=== PATIENT | female | born 1985 | race Caucasian/White ===

== ENCOUNTER 2016-08-09 17:30 | Observation (INO) | payer OTHER ==
[~2016-08-09] VITALS: Ht 157.5 cm; Wt 68.0 kg
[2016-08-09 18:42] VITALS: BP_SYST 110
[2016-08-09] MEDS: TERBUTALINE SULFATE 1 MG/ML VIAL SUBCUT PRN ×2 (20:57→21:28)
== END 2016-08-09 21:40 | disposition home or self-care (01) ==
LOC: SPU 17:30
PROVIDERS: ADMIT Specialist; ATTEND Specialist
DX: O62.9 Abnormality of forces of labor, unspecified (principal); Z3A.30 30 weeks gestation of pregnancy
CPT/HCPCS: 81002; 96372; G0378; 59899

== ENCOUNTER 2016-10-02 05:35 | Inpatient (IN) | payer OTHER ==
[~2016-10-02] VITALS: Ht 157.5 cm; Wt 73.5 kg
[2016-10-02] MEDS ORDERED: LR 1,000 ML IV ONE ×2 (05:43→08:21)
[2016-10-02] MEDS ORDERED: CEFAZOLIN 2 GM IVPB PREMIX 50 ML IV ONE ×2 (05:45→07:26)
[2016-10-02 06:55] LABS: BASOPHILS # (AUTO) 0.1 K/uL (0.0-0.2); BASOPHILS % (AUTO) 0.6 % (0.0-2.0); EOSINOPHILS # (AUTO) 0.1 K/uL (0.0-0.4); EOSINOPHILS % (AUTO) 1.4 % (0.0-4.0); HEMATOCRIT 35.2 % (36-48); HEMOGLOBIN 11.9 g/dL (12.0-16.0); LYMPHOCYTES # (AUTO) 2.6 K/uL (1.0-5.5); LYMPHOCYTES % (AUTO) 27.6 % (20.5-51.5); MEAN CORPUSCULAR HEMOGLOBIN 31 pg (27-31); MEAN CORPUSCULAR HGB CONC 34 % (32-36); MEAN CORPUSCULAR VOLUME 92 fL (79.0-98.0); MONOCYTES # (AUTO) 0.6 K/uL (0.0-1.0); MONOCYTES % (AUTO) 6.1 % (1.7-9.3); NEUTROPHILS # (AUTO) 5.9 K/uL (1.8-7.7); NEUTROPHILS % (AUTO) 64.3 % (40.0-70.0); PLATELET COUNT (AUTO) 138 K/uL (130-430); RED BLOOD CELL COUNT(AUTO) 3.81 MIL/uL (4.2-6.2); WHITE BLOOD COUNT (AUTO) 9.3 K/uL (4.8-10.8)
[2016-10-02 07:23] LABS: BILIRUBIN,URINE NEGATIVE (NEGATIVE); BLOOD, URINE NEGATIVE (NEGATIVE); CLARITY/URINE CLEAR (CLEAR); COLOR,URINE YELLOW (YELLOW); GLUCOSE,URINE NEGATIVE (NEGATIVE); KETONES,URINE NEGATIVE (NEGATIVE); LEUKOCYTE ESTERASE ,URINE 1+ (NEGATIVE); NITRITE, URINE NEGATIVE (NEGATIVE); PH,URINE 6.5 (5.0-8.0); PROTEIN URINE NEGATIVE (NEGATIVE); UROBILINOGEN,URINE 0.2 (0.2-1.0)
[2016-10-02] MEDS ORDERED: NS IRRIG SOLN 1000 ML IR ONE (07:26)
[2016-10-02] MEDS ORDERED: LR 1,000 ML IV.SOLN IV ONE (07:26)
[2016-10-02] MEDS ORDERED: OXYTOCIN 10 UNIT/ML VIAL IV ONE (07:26)
[2016-10-02] MEDS ORDERED: DEXAMETHASONE SOD PHOSPHATE 4 MG/ML VIAL IVP ONE (07:26)
[2016-10-02 07:27] VITALS: BP_SYST 105
[2016-10-02 08:03] LABS: BACTERIA,URINE MODERATE /HPF (None Seen); RBC,URINE 0-3 /HPF (0-3)
[2016-10-02 08:04] LABS: MUCUS,URINE 1+ /LPF (None Seen); URINE AMORPHOUS URATE 1+ /HPF (None Seen)
[2016-10-02] MEDS ORDERED: fentaNYL CITRATE/PF 100 MCG/2 ML AMP IVP PRN (08:30)
[2016-10-02] MEDS ORDERED: ePHEDrine sulfate 50 MG/ML VIAL IVP PRN (08:30)
[2016-10-02] MEDS ORDERED: KETOROLAC TROMETHAMINE 30 MG VIAL IM PRN (08:30)
[2016-10-02] MEDS ORDERED: NALOXONE HCL 0.4 MG/ML AMP (NARCAN) IVP PRN (08:30)
[2016-10-02] MEDS ORDERED: NALBUPHINE HCL 10 MG/ML AMP IVP PRN (08:30)
[2016-10-02] MEDS ORDERED: DIPHENHYDRAMINE INJ 50 MG/ML VIAL IVP PRN (08:30)
[2016-10-02] MEDS ORDERED: ONDANSETRON HCL 4 MG/2 ML VIAL IVP PRN ×2 (08:30)
[2016-10-02] MEDS ORDERED: OXYTOCIN/NORMAL SALINE 1,000 ML IV ONE ×2 (09:05→14:01)
[2016-10-02 09:19] VITALS: BP_SYST 135
[2016-10-02] MEDS ORDERED: MORPHINE SULFATE 10MG/10ML PF AMP ONE (14:00)
[2016-10-02] MEDS ORDERED: fentaNYL CITRATE/PF 100 MCG/2 ML AMP ONE (14:00)
[2016-10-02] MEDS ORDERED: DIPH-TET-PERTUS Vaccine 0.5 ML VIAL/Tdap (ADACEL) I.M. PRN (14:00)
[2016-10-02] MEDS ORDERED: OXYTOCIN/NORMAL SALINE 1,000 ML IV SCH (14:01)
[2016-10-02] MEDS ORDERED: LANOLIN 7 GM OINT. TP PRN (14:15)
[2016-10-02] MEDS ORDERED: ANUSOL 1 EA SUPP.RECT (PREPARATION H) RC PRN (14:15)
[2016-10-02] MEDS ORDERED: DERMOPLAST SPRAY TP PRN (14:15)
[2016-10-02] MEDS ORDERED: HYDROCORTISONE 0.5%, 28.35 GM TOPICAL CREAM TP PRN (14:15)
[2016-10-02] MEDS ORDERED: GLYCERIN/WITCH HAZEL (TUCKS PADS) TP PRN (14:15)
[2016-10-02] MEDS ORDERED: OXYCODONE/ACETAMINOPHEN 5-325 TABLET PO PRN (14:15)
[2016-10-02] MEDS ORDERED: HYDROcodone/ACETAMIN 5-325 MG TAB (NORCO/ VICODIN) PO PRN (14:15)
[2016-10-02] MEDS ORDERED: RHO(D) IMMUNE GLOBULIN/MALTOSE 1500 UNITS/1.3 ML (WINHRO) IM PRN (14:15)
[2016-10-02] MEDS ORDERED: MEASLES,MUMPS&RUBELLA VACC/PF 12500 UNIT/0.5 ML VIAL SUBQ PRN (14:15)
[2016-10-02] MEDS ORDERED: CEFAZOLIN 1 GM IVPB PREMIX 50 ML IV ONE (17:57)
[2016-10-02] MEDS: KETOROLAC TROMETHAMINE 30 MG VIAL IVP SCH (17:58)
[2016-10-02] MEDS ORDERED: TEMAZEPAM 15 MG CAPSULE PO PRN (21:00)
[2016-10-02] MEDS: CEFAZOLIN 1 GM IVPB PREMIX 50 ML IV SCH (23:44)
[2016-10-03] MEDS: KETOROLAC TROMETHAMINE 30 MG VIAL IVP SCH (06:19)
[2016-10-03] MEDS: CEFAZOLIN 1 GM IVPB PREMIX 50 ML IV SCH ×2 (06:24→12:05)
[2016-10-03 07:24] LABS: BASOPHILS % (AUTO) 0.2 % (0.0-2.0); EOSINOPHILS # (AUTO) 0.1 K/uL (0.0-0.4); EOSINOPHILS % (AUTO) 0.7 % (0.0-4.0); HEMATOCRIT 31.5 % (36-48); HEMOGLOBIN 10.7 g/dL (12.0-16.0); LYMPHOCYTES # (AUTO) 2.2 K/uL (1.0-5.5); LYMPHOCYTES % (AUTO) 19.2 % (20.5-51.5); MEAN CORPUSCULAR HEMOGLOBIN 32 pg (27-31); MEAN CORPUSCULAR HGB CONC 34 % (32-36); MEAN CORPUSCULAR VOLUME 93 fL (79.0-98.0); MONOCYTES # (AUTO) 0.5 K/uL (0.0-1.0); MONOCYTES % (AUTO) 4.4 % (1.7-9.3); NEUTROPHILS # (AUTO) 8.6 K/uL (1.8-7.7); NEUTROPHILS % (AUTO) 75.5 % (40.0-70.0); PLATELET COUNT (AUTO) 119 K/uL (130-430); RED CELL DISTRIBUTION WIDTH 13.5 % (9.0-15.0); WHITE BLOOD COUNT (AUTO) 11.4 K/uL (4.8-10.8)
[2016-10-03] MEDS: IBUPROFEN 600 MG TABLET PO SCH ×2 (12:10→17:54)
[2016-10-03] MEDS: SENNOSIDES/DOCUSATE SODIUM 1 TAB TABLET(SENOKOT-S) PO PRN (12:10)
[2016-10-03] MEDS: DOCUSATE SODIUM 100 MG CAPSULE PO PRN (12:11)
[2016-10-03] MEDS: OXYCODONE/ACETAMINOPHEN 5-325 TABLET PO PRN (16:28)
[2016-10-04] MEDS: DOCUSATE SODIUM 100 MG CAPSULE PO PRN ×2 (00:44→12:52)
[2016-10-04] MEDS: IBUPROFEN 600 MG TABLET PO SCH ×4 (00:44→17:57)
[2016-10-04] MEDS: SENNOSIDES/DOCUSATE SODIUM 1 TAB TABLET(SENOKOT-S) PO PRN (12:52)
[2016-10-04] MEDS: OXYCODONE/ACETAMINOPHEN 5-325 TABLET PO PRN (14:07)
[2016-10-04] MEDS ORDERED: DIPH-TET-PERTUS Vaccine 0.5 ML VIAL (ADACEL) I.M. ONE (18:00)
== END 2016-10-04 20:33 | disposition home or self-care (01) | DRG 766 ==
LOC: SPU 05:35
PROVIDERS: ADMIT Specialist; ATTEND Specialist
PROC: 3E0234Z Introduction of Serum, Toxoid and Vaccine into Muscle, Percutaneous Approach (ICD-10-PCS; 2016-10-02)
PROC: 10D00Z1 Extraction of Products of Conception, Low, Open Approach (ICD-10-PCS; principal; 2016-10-04)
DX: O34.211 Maternal care for low transverse scar from previous cesarean delivery (principal); O34.13 Maternal care for benign tumor of corpus uteri, third trimester; O32.1XX0 Maternal care for breech presentation, not applicable or unspecified; D25.1 Intramural leiomyoma of uterus; D25.2 Subserosal leiomyoma of uterus; Z3A.38 38 weeks gestation of pregnancy; Z37.0 Single live birth; Z23 Encounter for immunization
CPT/HCPCS: 36415; 81000-TC; 85025; 86592; 86886; 86900; 86901; 90715; 94760; J0690; J1100; J1885; J2274; J2590; J3010; J7120

== ENCOUNTER 2021-08-25 05:40 | Inpatient (IN) | payer OTHER ==
[2021-08-23 10:38] LABS: BASOPHILS % (AUTO) 0.5 % (0.0-2.0); EOSINOPHILS # (AUTO) 0.1 K/uL (0.0-0.4); EOSINOPHILS % (AUTO) 1.3 % (0.0-4.0); HEMOGLOBIN 12.9 g/dL (12.0-16.0); LYMPHOCYTES # (AUTO) 2.3 K/uL (1.0-5.5); LYMPHOCYTES % (AUTO) 27.1 % (20.5-51.5); MEAN CORPUSCULAR HEMOGLOBIN 31 pg (27-31); MEAN CORPUSCULAR HGB CONC 34 % (32-36); MEAN CORPUSCULAR VOLUME 90 fL (79.0-98.0); MONOCYTES # (AUTO) 0.6 K/uL (0.0-1.0); MONOCYTES % (AUTO) 6.8 % (1.7-9.3); NEUTROPHILS # (AUTO) 5.4 K/uL (1.8-7.7); NEUTROPHILS % (AUTO) 64.3 % (40.0-70.0); PLATELET COUNT (AUTO) 173 K/uL (130-430); RED CELL DISTRIBUTION WIDTH 14.9 % (9.0-15.0); WHITE BLOOD COUNT (AUTO) 8.5 K/uL (4.8-10.8)
[2021-08-23 11:37] LABS: BILIRUBIN,URINE NEGATIVE (NEGATIVE); BLOOD, URINE NEGATIVE (NEGATIVE); CLARITY/URINE SL CLOUDY (CLEAR); COLOR,URINE YELLOW (YELLOW); GLUCOSE,URINE NEGATIVE (NEGATIVE); KETONES,URINE NEGATIVE (NEGATIVE); LEUKOCYTE ESTERASE ,URINE TRACE (NEGATIVE); NITRITE, URINE NEGATIVE (NEGATIVE); PH,URINE 6.5 (5.0-8.0); PROTEIN URINE TRACE (NEGATIVE); UROBILINOGEN,URINE 0.2 (0.2-1.0)
[2021-08-23 13:59] LABS: BACTERIA,URINE MODERATE /HPF (None Seen); RBC,URINE 0-3 /HPF (0-3)
[~2021-08-25] VITALS: Ht 157.5 cm; Wt 81.2 kg
[2021-08-25 06:06] VITALS: BP_SYST 110
[2021-08-25] MEDS ORDERED: CEFAZOLIN 2 GM IVPB PREMIX 50 ML IV ONE ×2 (06:15→06:37)
[2021-08-25] MEDS ORDERED: FLU VACC QS2021-22(6MOS UP)/PF 0.5 ML/SYR SYRINGE I.M. PRN (06:30)
[2021-08-25] MEDS: LR 1,000 ML IV SCH ×4 (06:32→21:08)
[2021-08-25] MEDS ORDERED: ONDANSETRON HCL 4 MG/2 ML VIAL ONE (07:58)
[2021-08-25] MEDS ORDERED: DEXAMETHASONE SOD PHOSPHATE 4 MG/ML VIAL ONE (07:58)
[2021-08-25] MEDS ORDERED: BUPIVACAINE /DEX PF 0.75% SPINAL 2 ML AMP INJ ONE (07:58)
[2021-08-25] MEDS ORDERED: NS IRRIG SOLN 1000 ML IR ONE (07:58)
[2021-08-25] MEDS ORDERED: LR 1,000 ML IV.SOLN IV ONE (07:58)
[2021-08-25] MEDS ORDERED: OXYTOCIN 10 UNIT/ML VIAL ONE (07:58)
[2021-08-25] MEDS ORDERED: MORPHINE 2 MG/ML INJ. SYRINGE ONE (07:58)
[2021-08-25] MEDS ORDERED: NALOXONE HCL 0.4 MG/ML AMP (NARCAN) IVP PRN ×2 (08:30→09:00)
[2021-08-25] MEDS ORDERED: HYDROmorphone 1 MG/ML INJ. CARTRIDGE IVP PRN (08:30)
[2021-08-25] MEDS ORDERED: DIPHENHYDRAMINE INJ 50 MG/ML VIAL IVP PRN (08:30)
[2021-08-25] MEDS ORDERED: ONDANSETRON HCL 4 MG/2 ML VIAL IVP PRN (08:30)
[2021-08-25] MEDS ORDERED: KETOROLAC TROMETHAMINE 60 MG/2 ML VIAL IM PRN (08:30)
[2021-08-25] MEDS ORDERED: RHO(D) IMMUNE GLOBULIN/MALTOSE 1500 UNITS/1.3 ML (WINHRO) IM PRN (09:00)
[2021-08-25] MEDS ORDERED: TEMAZEPAM 15 MG CAPSULE PO PRN (09:00)
[2021-08-25] MEDS ORDERED: DIPH-TET-PERTUS Vaccine 0.5 ML VIAL (ADACEL) I.M. PRN (09:00)
[2021-08-25] MEDS ORDERED: BISACODYL 10 MG/SUPPOSITORY RC PRN (09:00)
[2021-08-25] MEDS ORDERED: ANUSOL 1 EA SUPP.RECT (PREPARATION H) RC PRN (09:00)
[2021-08-25] MEDS ORDERED: HYDROcodone/ACETAMIN 5-325 MG TAB (NORCO/ VICODIN) PO PRN (09:00)
[2021-08-25] MEDS ORDERED: MEASLES,MUMPS&RUBELLA VACC/PF 12500 UNIT/0.5 ML VIAL SUBQ PRN (09:00)
[2021-08-25] MEDS ORDERED: OXYCODONE/ACETAMINOPHEN *10*mg/325 mg TABLET PO PRN (09:00)
[2021-08-25] MEDS ORDERED: LANOLIN 7 GM OINT. TP PRN (09:00)
[2021-08-25 09:05] VITALS: BP_SYST 113
[2021-08-25] MEDS: CEFAZOLIN 1 GM IVPB PREMIX 50 ML IV SCH ×3 (12:08→23:58)
[2021-08-25] MEDS: KETOROLAC TROMETHAMINE 30 MG VIAL IVP SCH ×2 (17:43→23:57)
[2021-08-25] MEDS: OXYTOCIN/0.9 % SODIUM CHLORIDE 1,000 ML IV SCH ×2 (17:45→19:30)
[2021-08-25] MEDS: SENNOSIDES/DOCUSATE SODIUM 1 TAB TABLET(SENOKOT-S) PO SCH (21:00)
[2021-08-25] MEDS: DOCUSATE SODIUM 100 MG CAPSULE PO SCH (21:00)
[2021-08-26] MEDS: LR 1,000 ML IV SCH (01:00)
[2021-08-26] MEDS: OXYTOCIN/0.9 % SODIUM CHLORIDE 1,000 ML IV SCH ×2 (02:26→09:12)
[2021-08-26] MEDS: KETOROLAC TROMETHAMINE 30 MG VIAL IVP SCH ×2 (05:59→13:17)
[2021-08-26 07:42] LABS: BASOPHILS # (AUTO) 0.1 K/uL (0.0-0.2); BASOPHILS % (AUTO) 0.5 % (0.0-2.0); EOSINOPHILS # (AUTO) 0.1 K/uL (0.0-0.4); EOSINOPHILS % (AUTO) 0.5 % (0.0-4.0); HEMATOCRIT 30.9 % (36-48); HEMOGLOBIN 10.6 g/dL (12.0-16.0); LYMPHOCYTES # (AUTO) 1.7 K/uL (1.0-5.5); LYMPHOCYTES % (AUTO) 13.8 % (20.5-51.5); MEAN CORPUSCULAR HEMOGLOBIN 31 pg (27-31); MEAN CORPUSCULAR HGB CONC 34 % (32-36); MEAN CORPUSCULAR VOLUME 90 fL (79.0-98.0); MONOCYTES # (AUTO) 0.7 K/uL (0.0-1.0); NEUTROPHILS # (AUTO) 9.6 K/uL (1.8-7.7); NEUTROPHILS % (AUTO) 79.2 % (40.0-70.0); PLATELET COUNT (AUTO) 128 K/uL (130-430); RED BLOOD CELL COUNT(AUTO) 3.43 MIL/uL (4.2-6.2); RED CELL DISTRIBUTION WIDTH 14.9 % (9.0-15.0); WHITE BLOOD COUNT (AUTO) 12.1 K/uL (4.8-10.8)
[2021-08-26] MEDS: SIMETHICONE 80 MG TAB.CHEW PO PRN ×2 (13:17→19:06)
[2021-08-26] MEDS: OXYCODONE/ACETAMINOPHEN 5-325 TABLET PO PRN (15:52)
[2021-08-26] MEDS: IBUPROFEN 600 MG TABLET PO SCH (19:05)
[2021-08-26] MEDS: DOCUSATE SODIUM 100 MG CAPSULE PO SCH (20:23)
[2021-08-26] MEDS: SENNOSIDES/DOCUSATE SODIUM 1 TAB TABLET(SENOKOT-S) PO SCH (20:23)
[2021-08-27] MEDS: IBUPROFEN 600 MG TABLET PO SCH ×3 (00:47→12:01)
[2021-08-27] MEDS: DOCUSATE SODIUM 100 MG CAPSULE PO SCH (08:59)
[2021-08-27] MEDS: OXYCODONE/ACETAMINOPHEN 5-325 TABLET PO PRN (14:54)
== END 2021-08-27 15:05 | disposition home or self-care (01) | DRG 785 ==
LOC: SPU 05:40
PROVIDERS: ADMIT Specialist; ATTEND Specialist
PROC: 0UT70ZZ Resection of Bilateral Fallopian Tubes, Open Approach (ICD-10-PCS; 2021-08-25)
PROC: 10D00Z1 Extraction of Products of Conception, Low, Open Approach (ICD-10-PCS; principal; 2021-08-25 07:58)
DX: O34.211 Maternal care for low transverse scar from previous cesarean delivery (principal); Z30.2 Encounter for sterilization; Z37.0 Single live birth; O32.8XX0 Maternal care for other malpresentation of fetus, not applicable or unspecified; Z20.822 Contact with and (suspected) exposure to COVID-19; Z3A.37 37 weeks gestation of pregnancy
CPT/HCPCS: 36415; 81000; 85025; 86886; 86900; 86901; 88302; 94760; J0690; J1100; J1885; J2270; J2405; J2590; J3490; J7120; U0003